=== PATIENT | male | born 1945 | race Caucasian/White ===

== ENCOUNTER 2020-06-22 14:56 | Inpatient (IN) ==
[2020-06-22] MEDS ORDERED: SODIUM CHLORIDE 0.9% 1,000 ML IV STA (15:35)
[2020-06-22] MEDS ORDERED: FAMOTIDINE 20 MG/2 ML VIAL IV STA (15:35)
[2020-06-22] MEDS ORDERED: CETIRIZINE 10 MG TABLET PO STA (15:35)
[2020-06-22] MEDS ORDERED: DEXAMETHASONE 4 MG/1 ML VIAL IV STA (15:35)
[2020-06-22] MEDS ORDERED: DEXTROSE 50% 25 GM/50 ML VIAL IV PRN (15:54)
[2020-06-22] MEDS ORDERED: ALUMINUM/MAGNES/SIMETH MAX STR 30 ML UDCUP PO PRN (15:54)
[2020-06-22] MEDS ORDERED: PROMETHAZINE 25 MG/1 ML VIAL IM PRN (15:54)
[2020-06-22] MEDS ORDERED: CALCIUM CARBONATE CHEW 500 MG TABLET PO PRN (15:54)
[2020-06-22] MEDS ORDERED: GLUCAGON 1 MG VIAL IM PRN (15:54)
[2020-06-22] MEDS ORDERED: ZALEPLON 5 MG CAPSULE PO PRN (15:54)
[2020-06-22] MEDS ORDERED: DOCUSATE SODIUM 100 MG CAPSULE PO PRN (15:54)
[2020-06-22] MEDS ORDERED: ONDANSETRON 4 MG/2 ML VIAL IV PRN (15:54)
[2020-06-22] MEDS ORDERED: BISACODYL 5 MG TABLET PO PRN (15:54)
[2020-06-22] MEDS ORDERED: ACETAMINOPHEN 325 MG TABLET PO PRN (15:54)
[2020-06-22] MEDS ORDERED: LACTULOSE 20 GM/30 ML UDCUP PO PRN (15:54)
[2020-06-22] MEDS ORDERED: SIMETHICONE CHEW 125 MG TABLET PO PRN (15:54)
[2020-06-22 16:16] LABS: Basophils % 0.1 % (0.0-0.8); Eosinophils % 0.2 % (0.00-10.9); Hematocrit 37.5 VOL% (42.0-52.0); Hemoglobin 12.1 GM/DL (14.0-18.0); Immature Granulocytes % 0.6 %; Immature Granulocytes Absolute 0.05 #; Lymphocytes # 0.9 10*3/uL (1.4-4.0); Lymphocytes % 9.8 % (21.2-54.2); Mean Corpuscular HGB Conc 32.3 GM/DL (32-36); Mean Corpuscular Volume 88.4 FL (87-102); Mean Platelet Volume 11.6 FL (9.6-12.0); Monocytes % 6.6 % (1.7-12.7); Neutrophils % 82.7 % (38.7-73.9); Platelet Count 228 T/CUMM (130-400); Red Blood Count 4.24 MC/CUMM (3.8-5.5); Red Cell Distribution Width 13.7 % (9.3-17.3)
[2020-06-22 16:24] LABS: ABG Base Excess -2.3 MMOL/L (-2.5-2.5); ABG HCO3 22.4 MMOL/L (20-26); ABG Oxygen Saturation 95.3 % (95-100); ABG PCO2 37.9 MM HG (35-48); ABG PH 7.379 (7.35-7.45); ABG PO2 85.3 MM HG (80-95); ABG TCO2 19.8 MMOL/L (23-27); Allen Test Positive
[2020-06-22] MEDS ORDERED: METOPROLOL TARTRATE 5 MG/5 ML VIAL IV PRN (16:27)
[2020-06-22] MEDS ORDERED: NATEGLINIDE 120 MG PO SCH (16:30)
[2020-06-22] MEDS: cefTRIAXone 1,000 MG in SYRINGE 1 EACH IV SCH (16:44)
[2020-06-22 16:50] LABS: PT Patient Result 10.7 SECS (9.8-11.9)
[2020-06-22 16:57] LABS: Ferritin 404.3 ng/ml (26-388)
[2020-06-22] MEDS ORDERED: INFLUENZA VIRUS VACCINE 0.5 ML SYRINGE IM ONE (18:55)
[2020-06-22] MEDS: metFORMIN 500 MG TABLET PO SCH (19:03)
[2020-06-22] MEDS: INSULIN REGULAR 100 UNIT/ML SUBCUT SCH ×2 (19:03→21:35)
[2020-06-22] MEDS: GLIMEPIRIDE 4 MG TABLET PO SCH (19:03)
[2020-06-22] MEDS: ENOXAPARIN 80 MG/0.8 ML SYRINGE SUBCUT SCH (21:35)
[2020-06-22] MEDS: lisinopriL 20 MG TABLET PO SCH (21:35)
[2020-06-22] MEDS: ASPIRIN EC 81 MG TABLET PO SCH (21:35)
[2020-06-22] MEDS: AZITHROMYCIN INJ 500 MG in SODIUM CHLORIDE 0.9% 250 ML IV SCH (21:35)
[2020-06-22] MEDS: INSULIN GLARGINE 100 UNIT/ML SUBCUT SCH (21:35)
[2020-06-23 05:51] LABS: Basophils % 0.2 % (0.0-0.8); Hematocrit 37.3 VOL% (42.0-52.0); Immature Granulocytes % 1.1 %; Immature Granulocytes Absolute 0.05 #; Lymphocytes # 0.8 10*3/uL (1.4-4.0); Lymphocytes % 16.5 % (21.2-54.2); Mean Corpuscular HGB Conc 32.2 GM/DL (32-36); Mean Platelet Volume 11.6 FL (9.6-12.0); Monocytes % 6.3 % (1.7-12.7); Neutrophils % 75.9 % (38.7-73.9); Platelet Count 235 T/CUMM (130-400); Red Blood Count 4.19 MC/CUMM (3.8-5.5); Red Cell Distribution Width 13.5 % (9.3-17.3); White Blood Count 4.7 T/CUMM (4-12)
[2020-06-23 06:13] LABS: Albumin 2.6 G/DL (3.4-5.0); Bilirubin,Total 0.4 MG/DL (0.2-1.0); Calcium 8.8 MG/DL (8.5-10.1); Ferritin 389.7 ng/ml (26-388); Total Protein 6.6 G/DL (6.4-8.3)
[2020-06-23 06:20] LABS: Risk Ratio 1.88; Thyroid Stimulating Hormone 0.435 uIU/ml (0.358-3.74); VLDL CHOLESTEROL 20.8 MG/DL
[2020-06-23 06:50] LABS: Hypochromasia 1+; Microcytosis 1+; Platelet Estimate Normal
[2020-06-23 08:05] LABS: Sedimentation Rate-Westergren 65 MM/HR (0-20)
[2020-06-23] MEDS: POTASSIUM CHLORIDE 8 MEQ CAPSULE PO SCH (08:27)
[2020-06-23] MEDS ORDERED: sitaGLIPtin 100 MG TABLET PO SCH (09:00)
[2020-06-23] MEDS ORDERED: PIOGLITAZONE 15 MG TABLET PO SCH (09:00)
[2020-06-23] MEDS: FLUTICASONE 50 MCG NASAL SPRAY 16 GM BOTTLE BOTH NARES SCH (09:02)
[2020-06-23] MEDS: INSULIN REGULAR 100 UNIT/ML SUBCUT SCH ×4 (09:03→20:46)
[2020-06-23] MEDS: amLODIPine 10 MG TABLET PO SCH (09:04)
[2020-06-23] MEDS: GLIMEPIRIDE 4 MG TABLET PO SCH ×2 (09:04→16:39)
[2020-06-23] MEDS: hydroCHLOROthiazide 25 MG TABLET PO SCH (09:04)
[2020-06-23] MEDS: lisinopriL 20 MG TABLET PO SCH ×2 (09:04→20:46)
[2020-06-23] MEDS: metFORMIN 500 MG TABLET PO SCH ×2 (09:05→16:39)
[2020-06-23] MEDS: cefTRIAXone 1,000 MG in SYRINGE 1 EACH IV SCH (09:10)
[2020-06-23] MEDS: NEBIVOLOL 10 MG TABLET PO SCH (09:14)
[2020-06-23] MEDS: ENOXAPARIN 80 MG/0.8 ML SYRINGE SUBCUT SCH ×2 (09:14→20:47)
[2020-06-23] MEDS: PANTOPRAZOLE 40 MG TABLET PO SCH (09:14)
[2020-06-23] MEDS: TORSEMIDE 20 MG TABLET PO SCH (09:14)
[2020-06-23] MEDS: ASPIRIN EC 81 MG TABLET PO SCH ×2 (09:14→20:49)
[2020-06-23] MEDS: ASCORBIC ACID 500 MG TABLET PO SCH (09:15)
[2020-06-23] MEDS: ZINC SULFATE 220 MG CAPSULE PO SCH (09:15)
[2020-06-23] MEDS ORDERED: REMDESIVIR 200 MG in SODIUM CHLORIDE 0.9% 210 ML IV ONE (09:30)
[2020-06-23] MEDS: DEXAMETHASONE 4 MG/1 ML VIAL IV SCH (09:35)
[2020-06-23] MEDS ORDERED: SODIUM CHLORIDE 0.9% 1,000 ML IV PRN (12:15)
[2020-06-23] MEDS: AZITHROMYCIN INJ 500 MG in SODIUM CHLORIDE 0.9% 250 ML IV SCH (20:46)
[2020-06-23] MEDS: INSULIN GLARGINE 100 UNIT/ML SUBCUT SCH (20:47)
[2020-06-24 03:34] LABS: ABG Base Excess -3.7 MMOL/L (-2.5-2.5); ABG HCO3 20.3 MMOL/L (20-26); ABG PCO2 34.1 MM HG (35-48); ABG PH 7.393 (7.35-7.45); ABG PO2 72.5 MM HG (80-95); ABG TCO2 21.4 MMOL/L (23-27)
[2020-06-24 03:35] LABS: ABG Oxygen Saturation 94.7 % (95-100)
[2020-06-24 06:14] LABS: Basophils % 0.2 % (0.0-0.8); Hematocrit 39.2 VOL% (42.0-52.0); Hemoglobin 12.6 GM/DL (14.0-18.0); Immature Granulocytes % 0.8 %; Immature Granulocytes Absolute 0.09 #; Lymphocytes # 2.1 10*3/uL (1.4-4.0); Lymphocytes % 18.4 % (21.2-54.2); Mean Corpuscular HGB Conc 32.1 GM/DL (32-36); Mean Corpuscular Volume 88.3 FL (87-102); Mean Platelet Volume 11.5 FL (9.6-12.0); Monocytes % 7.6 % (1.7-12.7); Platelet Count 340 T/CUMM (130-400); Red Blood Count 4.44 MC/CUMM (3.8-5.5); Red Cell Distribution Width 13.4 % (9.3-17.3); White Blood Count 11.2 T/CUMM (4-12)
[2020-06-24 07:04] LABS: Albumin 2.9 G/DL (3.4-5.0); Bilirubin,Total 0.6 MG/DL (0.2-1.0); Ferritin 387.2 ng/ml (26-388); Osmolality,Calculated 280.5 MOS/KG (273-304); Total Protein 7.3 G/DL (6.4-8.3)
[2020-06-24 07:26] LABS: Sedimentation Rate-Westergren 94 MM/HR (0-20)
[2020-06-24] MEDS: INSULIN REGULAR 100 UNIT/ML SUBCUT SCH ×4 (08:17→20:35)
[2020-06-24] MEDS: REMDESIVIR 100 MG in SODIUM CHLORIDE 0.9% 230 ML IV SCH (09:33)
[2020-06-24] MEDS: ENOXAPARIN 80 MG/0.8 ML SYRINGE SUBCUT SCH ×2 (09:33→20:34)
[2020-06-24] MEDS: POTASSIUM CHLORIDE 8 MEQ CAPSULE PO SCH (09:33)
[2020-06-24] MEDS: GLIMEPIRIDE 4 MG TABLET PO SCH ×2 (09:34→16:58)
[2020-06-24] MEDS: ASCORBIC ACID 500 MG TABLET PO SCH (09:34)
[2020-06-24] MEDS: PANTOPRAZOLE 40 MG TABLET PO SCH (09:34)
[2020-06-24] MEDS: ASPIRIN EC 81 MG TABLET PO SCH ×2 (09:34→20:34)
[2020-06-24] MEDS: ZINC SULFATE 220 MG CAPSULE PO SCH (09:35)
[2020-06-24] MEDS: DEXAMETHASONE 4 MG/1 ML VIAL IV SCH (09:36)
[2020-06-24] MEDS: TORSEMIDE 20 MG TABLET PO SCH (09:39)
[2020-06-24] MEDS: FLUTICASONE 50 MCG NASAL SPRAY 16 GM BOTTLE BOTH NARES SCH (09:39)
[2020-06-24] MEDS: NEBIVOLOL 10 MG TABLET PO SCH (09:39)
[2020-06-24] MEDS: cefTRIAXone 1,000 MG in SYRINGE 1 EACH IV SCH (09:40)
[2020-06-24] MEDS: amLODIPine 10 MG TABLET PO SCH (09:40)
[2020-06-24] MEDS: hydroCHLOROthiazide 25 MG TABLET PO SCH (09:40)
[2020-06-24] MEDS: lisinopriL 20 MG TABLET PO SCH ×2 (09:40→20:34)
[2020-06-24] MEDS: metFORMIN 500 MG TABLET PO SCH (10:44)
[2020-06-24] MEDS: AZITHROMYCIN INJ 500 MG in SODIUM CHLORIDE 0.9% 250 ML IV SCH (20:35)
[2020-06-25 05:06] LABS: Basophils % 0.3 % (0.0-0.8); Eosinophils % 0.2 % (0.00-10.9); Hematocrit 37.3 VOL% (42.0-52.0); Hemoglobin 11.7 GM/DL (14.0-18.0); Immature Granulocytes % 1.6 %; Immature Granulocytes Absolute 0.09 #; Lymphocytes # 1.2 10*3/uL (1.4-4.0); Lymphocytes % 20.2 % (21.2-54.2); Mean Corpuscular HGB Conc 31.4 GM/DL (32-36); Mean Corpuscular Volume 89.7 FL (87-102); Mean Platelet Volume 11.2 FL (9.6-12.0); Monocytes % 8.2 % (1.7-12.7); Neutrophils % 69.5 % (38.7-73.9); Platelet Count 306 T/CUMM (130-400); Red Blood Count 4.16 MC/CUMM (3.8-5.5); Red Cell Distribution Width 13.6 % (9.3-17.3); White Blood Count 5.7 T/CUMM (4-12)
[2020-06-25 05:28] LABS: Albumin 2.8 G/DL (3.4-5.0); Bilirubin,Total 0.4 MG/DL (0.2-1.0); Calcium 8.8 MG/DL (8.5-10.1); Ferritin 286.4 ng/ml (26-388); Osmolality,Calculated 287.1 MOS/KG (273-304); Total Protein 6.1 G/DL (6.4-8.3)
[2020-06-25 06:28] LABS: Sedimentation Rate-Westergren 64 MM/HR (0-20)
[2020-06-25] MEDS: INSULIN REGULAR 100 UNIT/ML SUBCUT SCH ×4 (08:59→21:03)
[2020-06-25] MEDS: DEXAMETHASONE 4 MG/1 ML VIAL IV SCH (09:00)
[2020-06-25] MEDS: cefTRIAXone 1,000 MG in SYRINGE 1 EACH IV SCH (09:00)
[2020-06-25] MEDS: ENOXAPARIN 80 MG/0.8 ML SYRINGE SUBCUT SCH ×2 (09:00→21:03)
[2020-06-25] MEDS: NEBIVOLOL 10 MG TABLET PO SCH (09:01)
[2020-06-25] MEDS: GLIMEPIRIDE 4 MG TABLET PO SCH ×2 (09:01→16:20)
[2020-06-25] MEDS: POTASSIUM CHLORIDE 8 MEQ CAPSULE PO SCH (09:01)
[2020-06-25] MEDS: TORSEMIDE 20 MG TABLET PO SCH (09:01)
[2020-06-25] MEDS: PANTOPRAZOLE 40 MG TABLET PO SCH (09:01)
[2020-06-25] MEDS: lisinopriL 20 MG TABLET PO SCH ×2 (09:01→21:02)
[2020-06-25] MEDS: ASPIRIN EC 81 MG TABLET PO SCH ×2 (09:02→21:03)
[2020-06-25] MEDS: hydroCHLOROthiazide 25 MG TABLET PO SCH (09:02)
[2020-06-25] MEDS: REMDESIVIR 100 MG in SODIUM CHLORIDE 0.9% 230 ML IV SCH (09:03)
[2020-06-25] MEDS: ZINC SULFATE 220 MG CAPSULE PO SCH (09:03)
[2020-06-25] MEDS: ASCORBIC ACID 500 MG TABLET PO SCH (09:03)
[2020-06-25] MEDS: amLODIPine 10 MG TABLET PO SCH (09:04)
[2020-06-25] MEDS: FLUTICASONE 50 MCG NASAL SPRAY 16 GM BOTTLE BOTH NARES SCH (09:04)
[2020-06-25] MEDS: AZITHROMYCIN INJ 500 MG in SODIUM CHLORIDE 0.9% 250 ML IV SCH (21:02)
[2020-06-25 22:16] LABS: Specimen Source NARE
[2020-06-26 05:40] LABS: Basophils % 0.2 % (0.0-0.8); Eosinophils % 0.2 % (0.00-10.9); Hematocrit 37.1 VOL% (42.0-52.0); Hemoglobin 11.8 GM/DL (14.0-18.0); Immature Granulocytes % 2.2 %; Immature Granulocytes Absolute 0.12 #; Lymphocytes # 1.1 10*3/uL (1.4-4.0); Lymphocytes % 20.1 % (21.2-54.2); Mean Corpuscular HGB Conc 31.8 GM/DL (32-36); Mean Corpuscular Volume 88.8 FL (87-102); Mean Platelet Volume 11.3 FL (9.6-12.0); Monocytes % 10.3 % (1.7-12.7); Platelet Count 314 T/CUMM (130-400); Red Blood Count 4.18 MC/CUMM (3.8-5.5); Red Cell Distribution Width 13.4 % (9.3-17.3); White Blood Count 5.4 T/CUMM (4-12)
[2020-06-26 06:11] LABS: Albumin 2.8 G/DL (3.4-5.0); Bilirubin,Total 0.4 MG/DL (0.2-1.0); Calcium 8.9 MG/DL (8.5-10.1); Ferritin 238.6 ng/ml (26-388); Osmolality,Calculated 288.3 MOS/KG (273-304); Total Protein 6.1 G/DL (6.4-8.3)
[2020-06-26 06:26] LABS: Anisocytosis Slight; Band Neutrophils 3 % (0-10); Eosinophils 1 % (0-10); Lymphocytes 18 % (20-55); Metamyelocytes 1 %; Myelocytes 1 %; Platelet Estimate Normal; Segmented Neutrophils 63 % (50-85); Total Cells Counted 100
[2020-06-26 07:02] LABS: Sedimentation Rate-Westergren 92 MM/HR (0-20)
[2020-06-26] MEDS: INSULIN REGULAR 100 UNIT/ML SUBCUT SCH ×4 (07:34→21:20)
[2020-06-26] MEDS: hydroCHLOROthiazide 25 MG TABLET PO SCH (08:44)
[2020-06-26] MEDS: NEBIVOLOL 10 MG TABLET PO SCH (08:45)
[2020-06-26] MEDS: ZINC SULFATE 220 MG CAPSULE PO SCH (08:45)
[2020-06-26] MEDS: PANTOPRAZOLE 40 MG TABLET PO SCH (08:45)
[2020-06-26] MEDS: GLIMEPIRIDE 4 MG TABLET PO SCH ×2 (08:45→17:09)
[2020-06-26] MEDS: ASPIRIN EC 81 MG TABLET PO SCH ×2 (08:45→21:20)
[2020-06-26] MEDS: lisinopriL 20 MG TABLET PO SCH ×2 (08:45→21:20)
[2020-06-26] MEDS: amLODIPine 10 MG TABLET PO SCH (08:45)
[2020-06-26] MEDS: TORSEMIDE 20 MG TABLET PO SCH (08:45)
[2020-06-26] MEDS: ASCORBIC ACID 500 MG TABLET PO SCH (08:45)
[2020-06-26] MEDS: POTASSIUM CHLORIDE 8 MEQ CAPSULE PO SCH (08:45)
[2020-06-26] MEDS: INSULIN GLARGINE 100 UNIT/ML SUBCUT SCH ×2 (08:46→21:20)
[2020-06-26] MEDS: ENOXAPARIN 80 MG/0.8 ML SYRINGE SUBCUT SCH ×2 (08:46→21:20)
[2020-06-26] MEDS: cefTRIAXone 1,000 MG in SYRINGE 1 EACH IV SCH (08:47)
[2020-06-26] MEDS: DEXAMETHASONE 4 MG/1 ML VIAL IV SCH (08:47)
[2020-06-26] MEDS: FLUTICASONE 50 MCG NASAL SPRAY 16 GM BOTTLE BOTH NARES SCH (08:47)
[2020-06-26] MEDS: REMDESIVIR 100 MG in SODIUM CHLORIDE 0.9% 230 ML IV SCH (09:28)
[2020-06-26] MEDS: AZITHROMYCIN INJ 500 MG in SODIUM CHLORIDE 0.9% 250 ML IV SCH (21:20)
[2020-06-27 05:36] LABS: Basophils % 0.5 % (0.0-0.8); Eosinophils % 0.5 % (0.00-10.9); Hematocrit 37.7 VOL% (42.0-52.0); Hemoglobin 12.1 GM/DL (14.0-18.0); Immature Granulocytes % 2.4 %; Immature Granulocytes Absolute 0.14 #; Lymphocytes # 1.2 10*3/uL (1.4-4.0); Lymphocytes % 19.7 % (21.2-54.2); Mean Corpuscular HGB Conc 32.1 GM/DL (32-36); Mean Corpuscular Volume 87.9 FL (87-102); Mean Platelet Volume 11.4 FL (9.6-12.0); Monocytes % 8.7 % (1.7-12.7); Neutrophils % 68.2 % (38.7-73.9); Platelet Count 332 T/CUMM (130-400); Red Blood Count 4.29 MC/CUMM (3.8-5.5); Red Cell Distribution Width 13.2 % (9.3-17.3); White Blood Count 5.8 T/CUMM (4-12)
[2020-06-27 06:02] LABS: Band Neutrophils 1 % (0-10); Hypochromasia 1+; Lymphocytes 20 % (20-55); Nucleated Red Blood Cells 1 (0-5); Platelet Estimate Adequate; Segmented Neutrophils 72 % (50-85); Total Cells Counted 100
[2020-06-27 06:42] LABS: Alanine Aminotransferase 31 U/L (16-61); Albumin 2.4 G/DL (3.4-5.0); Alkaline Phosphatase 68 U/L (45-117); Aspartate Amino Transferase 17 U/L (0-37); Bilirubin,Total < 0.39 MG/DL (0.2-1.0); Blood Urea Nitrogen 31 MG/DL (7-18); Calcium 9.1 MG/DL (8.5-10.1); Estimated Glom Filtration Rate 125 ML/MIN; Ferritin 193.4 ng/ml (26-388); Glucose 142 MG/DL (74-106); Osmolality,Calculated 289.3 MOS/KG (273-304); Total Protein 5.7 G/DL (6.4-8.3)
[2020-06-27 06:55] LABS: Sedimentation Rate-Westergren 54 MM/HR (0-20)
[2020-06-27] MEDS: INSULIN REGULAR 100 UNIT/ML SUBCUT SCH (08:13)
[2020-06-27] MEDS: ENOXAPARIN 80 MG/0.8 ML SYRINGE SUBCUT SCH (08:54)
[2020-06-27] MEDS: NEBIVOLOL 10 MG TABLET PO SCH (08:54)
[2020-06-27] MEDS: hydroCHLOROthiazide 25 MG TABLET PO SCH (08:54)
[2020-06-27] MEDS: PANTOPRAZOLE 40 MG TABLET PO SCH (08:54)
[2020-06-27] MEDS: amLODIPine 10 MG TABLET PO SCH (08:54)
[2020-06-27] MEDS: ASCORBIC ACID 500 MG TABLET PO SCH (08:54)
[2020-06-27] MEDS: ASPIRIN EC 81 MG TABLET PO SCH (08:54)
[2020-06-27] MEDS: ZINC SULFATE 220 MG CAPSULE PO SCH (08:54)
[2020-06-27] MEDS: POTASSIUM CHLORIDE 8 MEQ CAPSULE PO SCH (08:54)
[2020-06-27] MEDS: lisinopriL 20 MG TABLET PO SCH (08:54)
[2020-06-27] MEDS: TORSEMIDE 20 MG TABLET PO SCH (08:54)
[2020-06-27] MEDS: GLIMEPIRIDE 4 MG TABLET PO SCH (08:54)
[2020-06-27] MEDS: cefTRIAXone 1,000 MG in SYRINGE 1 EACH IV SCH (08:55)
[2020-06-27] MEDS: REMDESIVIR 100 MG in SODIUM CHLORIDE 0.9% 230 ML IV SCH (08:56)
[2020-06-27] MEDS: FLUTICASONE 50 MCG NASAL SPRAY 16 GM BOTTLE BOTH NARES SCH (08:56)
[2020-06-27] MEDS: DEXAMETHASONE 4 MG/1 ML VIAL IV SCH (08:56)
[2020-06-27] MEDS: INSULIN GLARGINE 100 UNIT/ML SUBCUT SCH (10:09)
[2020-06-27 12:10] VITALS: BP 136/60
== END 2020-06-27 12:20 | disposition home health service (06) | DRG 177 ==
LOC: N.ED 14:56 → N.EDINP 15:54 → N.2E 17:14
PROVIDERS: ADMIT Internal Medicine; ATTEND Internal Medicine